=== PATIENT | male | born 1970 | race Caucasian/White ===

== ENCOUNTER 2025-01-20 17:46 | Emergency (ER) | payer SELFPAY ==
[2025-01-20 17:49] VITALS: BP 141/109
[2025-01-20 18:14] LABS: Hematocrit 47.3 % (39.0-52.0); Hemoglobin 16.9 g/dL (13.0-18.0); Mean Corp Hgb Conc. 35.7 g/dL (33.0-37.0); Mean Corpuscular Volume 88.1 fL (80.0-94.0); Nucleated Red Blood Cells % 0 % (-); Platelet Count 251 10^3/uL (130-400); Red Cell Dist. Width 12.9 % (11.5-14.5)
[2025-01-20 18:22] LABS: ALT (SGPT) 58 U/L (0-50); AST (SGOT) 44 U/L (17-59); Albumin 4.7 g/dl (3.5-5.0); Alkaline Phosphatase 86 U/L (38-126); Blood Urea Nitrogen 15 mg/dl (9-20); Calcium 8.6 mg/dl (8.4-10.2); Carbon Dioxide 25 mmol/L (22-30); Chloride 107 mmol/L (98-107); Glucose 137 mg/dl (70-99); Potassium 4.2 mmol/L (3.5-5.1); Sodium 141 mmol/L (135-145); Total Protein 7.9 g/dl (6.3-8.2); eGFR > 60.00
[2025-01-20 19:59] VITALS: BMI 27.3
[2025-01-20 20:01] VITALS: BP 169/127
[2025-01-20 21:00] VITALS: BP 167/119
== END 2025-01-20 22:18 ==
LOC: EMR 17:46
PROVIDERS: EMERGENCY PHYSICIAN Emergency Medicine
DX: Z53.21 Procedure and treatment not carried out due to patient leaving prior to being seen by health care provider (principal)
CPT/HCPCS: 80053; 82077; 85025